=== PATIENT | female | born 1970 | race Asian ===

== ENCOUNTER 2016-12-04 22:33 | Emergency (ER) | payer SELFPAY ==
[2016-12-04 22:36] VITALS: BP 138/104
[2016-12-04] MEDS ORDERED: IPRATRPIUM/ALBUTEROL 0.5/2.5MG 3 ML NEBU. NEB ONE (23:30)
[2016-12-04] MEDS ORDERED: AZIT250T6 PO (23:48)
[2016-12-04] MEDS ORDERED: PROAIR HFA8.5 GM INH (23:48)
[2016-12-04] MEDS ORDERED: HYDR115S2 PO (23:48)
--- NOTE | 2016-12-04 23:48 | PHYS DOC ---
Past Medical History Past Medical History: Hypertension Past Surgical History: No Surgical History Alcohol Use: Occasionally Drug Use: None Adult General Chief Complaint Chief Complaint: COUGH HPI HPI Patient is a 46 year old female presents emergency room today with a complaint of one-week of cough, nasal congestion, headache, body aches, subjective fevers and chills. Patient denies any known ill contacts. She denies hospitalization, foreign travel or antibiotic use in the past 90 days. Patient reports she is a nonsmoker. Patient denies any history of heart or lung disease. Review of Systems Review of Systems Constitutional: Denies fever or chills [] Eyes: Denies change in visual acuity, redness, or eye pain [] HENT: Denies nasal congestion or sore throat [] Respiratory: Denies cough or shortness of breath [] Cardiovascular: No additional information not addressed in HPI [] GI: Denies abdominal pain, nausea, vomiting, bloody stools or diarrhea [] : Denies dysuria or hematuria [] Musculoskeletal: Denies back pain or joint pain [] Integument: Denies rash or skin lesions [] Neurologic: Denies headache, focal weakness or sensory changes [] Endocrine: Denies polyuria or polydipsia [] Current Medications Current Medications Current Medications Medications (Trade) Dose Ordered Sig/Suzette Start Time Stop Time Status Last Admin Dose Admin Albuterol/ Ipratropium (Duoneb) 3 ml 1X ONCE 12/04/16 23:30 12/04/16 23:31 DC 12/04/16 23:47 3 ML Allergies Allergies Allergies Coded Allergies Type Severity Reaction Last Updated Verified No Known Drug Allergies 09/06/16 No Physical Exam Physical Exam Constitutional: Well developed, well nourished, no acute distress, non-toxic appearance. Patient appears ill. She demonstrates a harsh, bronchitic cough. HENT: Normocephalic, atraumatic, bilateral external ears normal, oropharynx moist, no oral exudates, nose normal. [] Eyes: PERRLA, EOMI, conjunctiva normal, no discharge. [] Neck: Normal range of motion, no tenderness, supple, no stridor. [] Cardiovascular:Heart rate regular rhythm, no murmur [] Lungs & Thorax: There is no respiratory distress respiratory fatigue. There is no sensory muscle use or posturing. Audible rales heard in the base of the right lung field. There is no wheezing or rhonchi. Abdomen: Bowel sounds normal, soft, no tenderness, no masses, no pulsatile masses. [] Skin: Warm, dry, no erythema, no rash. [] Back: No tenderness, no CVA tenderness. [] Extremities: No tenderness, no cyanosis, no clubbing, ROM intact, no edema. [] Neurologic: Alert and oriented X 3, normal motor function, normal sensory function, no focal deficits noted. [] Psychologic: Affect normal, judgement normal, mood normal. [] Current Patient Data Vital Signs Vital Signs Date Time Temp Pulse Resp B/P Pulse Ox O2 Delivery O2 Flow Rate FiO2 12/04/16 23:48 98 Room Air 12/04/16 22:36 98.3 110 22 98.3 EKG EKG [] Radiology/Procedures Radiology/Procedures PA and lateral chest x-ray was performed with adequate technique. Patient has an infiltrate in her right lower lobe. Course & Med Decision Making Course & Med Decision Making Pertinent Labs and Imaging studies reviewed. (See chart for details) [] Dragon Disclaimer Dragon Disclaimer This electronic medical record was generated, in whole or in part, using a voice recognition dictation system. Departure Departure Impression: Primary Impression: Pneumonia Disposition: 01 HOME, SELF-CARE Condition: GOOD Referrals: ANETTE GROVES (PCP) Patient Instructions: Pneumonia, Adult, [id number] Additional Instructions: 1. You have pneumonia in the right lower lobe. 2. Take the medication as prescribed. 3. Review the discharge instructions for self-care and reasons to return to the emergency department. 4. Contact your primary care doctor's office Tuesday to schedule follow-up appointment for reevaluation by Tuesday or . Scripts Hydrocodone/Chlorphen Polis (Tussionex Pennkinetic Susp)480 Ml Nori.er.[id number] Ml PO BID cough suppression #100 ML Prov:DEIDRA AREVALO 12/04/16 Albuterol Sulfate (Proair Hfa Inhaler)8.5 Gm Hfa.aer.ad1 Puff INH PRN Q6HRS PRN SHORTNESS OF BREATH #1 INHALER Ref 0 Prov:DEIDRA AREVALO 12/04/16 Azithromycin (Azithromycin Tablet)250 Mg Tablet1 Pkg PO UD pneumonia #6 TAB Prov:DEIDRA AREVALO 12/04/16 DEIDRA AREVALO Dec 04, 2016 23:48
--- NOTE | 2016-12-05 08:10 | RAD ---
Indication: Fever and cough Technique: Two-view chest radiograph was obtained. No comparison is available. Findings: The lungs are clear. The cardiopulmonary silhouette is within normal limits. There is no pleural effusion. There are minimal degenerative changes in the spine. Impression: No acute thoracic findings.
== END 2016-12-05 00:20 | disposition home or self-care (01) ==
LOC: ER 22:33
DX: J18.9 Pneumonia, unspecified organism (principal); I10 Essential (primary) hypertension
CPT/HCPCS: 71020; 94250; 94640; 99284; J7620

== ENCOUNTER 2017-07-09 00:42 | Inpatient (IN) | payer SELFPAY ==
[~2017-07-09] VITALS: Ht 165.1 cm; Wt 94.8 kg
[~2017-07-09 00:42] MED LIST: AZIT250T6 PO; HYDR115S2 PO; PROAIR HFA8.5 GM INH
[2017-07-09 01:08] LABS: BASO # 0.1 x10^3/uL (0.0-0.2); BASO % 1 % (0-3); EOS % 4 % (0-3); HEMATOCRIT 40.6 % (36.0-47.0); HEMOGLOBIN 13.8 g/dL (12.0-15.5); LYMPH # 4.8 x10^3/uL (1.0-4.8); LYMPH % 45 % (24-48); MEAN CORPUSCULAR HEMOGLOBIN 33 pg (25-35); MEAN CORPUSCULAR HGB CONC 34 g/dL (31-37); MEAN CORPUSCULAR VOLUME 96 fL (79-100); MONO % 7 % (0-9); NEUT % 44 % (31-73); PLATELET COUNT 350 x10^3/uL (140-400); RED BLOOD COUNT 4.25 x10^6/uL (3.50-5.40); RED CELL DISTRIBUTION WIDTH 12.7 % (11.5-14.5); WHITE BLOOD COUNT 10.8 x10^3/uL (4.0-11.0)
--- NOTE | 2017-07-09 01:12 | PHYS DOC ---
Past Medical History Past Medical History: Hypertension Past Surgical History: No Surgical History Alcohol Use: Occasionally Drug Use: None Adult General Chief Complaint Chief Complaint: CHEST PAIN HPI HPI Patient is a 47 year old F who presents with chest pain. Patient states her chest pain has been present for the past 24 hours and start a central and radiates to her right shoulder. Patient states nothing increases or decreases the pain. Patient currently takes no medications however has a history of hypertension and smoking. Patient denies any shortness of breath. Patient denies any nausea/vomiting/diarrhea. Patient denies any fevers. Patient has no other complaints. 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 Review of Systems Review of Systems GEN: Denies fevers, chills, sweats HEENT: Denies blurred vision, sore throat CV: Chest pain RESP: Denies shortness of air, cough GI: Denies n/v/d NEURO: Denies confusion, dizziness MSK: Denies weakness, joint pain/swelling Current Medications Current Medications Current Medications Medications (Trade) Dose Ordered Sig/Suzette Start Time Stop Time Status Last Admin Dose Admin Aspirin (Children'S Aspirin) 324 mg 1X ONCE 07/09/17 01:15 07/09/17 01:16 DC 07/09/17 01:24 324 MG Info (Do NOT chart on this entry -- for MONITORING) 1 each PRN DAILY PRN 07/09/17 01:45 07/11/17 01:44 Iohexol (Omnipaque 300 Mg/ml) 75 ml 1X ONCE 07/09/17 01:45 07/09/17 01:46 DC 07/09/17 01:59 75 ML Nitroglycerin (Nitrostat) 0.4 mg PRN Q5MIN PRN 07/09/17 01:15 07/09/17 01:35 0.4 MG Allergies Allergies Allergies Coded Allergies Type Severity Reaction Last Updated Verified No Known Drug Allergies 09/06/16 No Physical Exam Physical Exam GEN.: No apparent distress. Alert and oriented. HEENT: Head is normocephalic, atraumatic NECK: Supple. LUNGS: CTAB. HEART: RRR, S1, S2 present. Peripheral pulses intact ABDOMEN: Soft, nontender. Positive bowel sounds. EXTREMITIES: Without any cyanosis. NEUROLOGIC: Normal speech, normal tone PSYCHIATRIC: Normal affect, normal mood. SKIN: No ulcerations Current Patient Data Vital Signs Vital Signs Date Time Temp Pulse Resp B/P (MAP) Pulse Ox O2 Delivery O2 Flow Rate FiO2 07/09/17 01:35 73 186/91 07/09/17 01:08 98.6 18 100 Room Air 98.6 Lab Values Laboratory Tests Test 07/09/17 01:00 White Blood Count 10.8 x10^3/uL (4.0-11.0) Red Blood Count 4.25 x10^6/uL (3.50-5.40) Hemoglobin 13.8 g/dL (12.0-15.5) Hematocrit 40.6 % (36.0-47.0) Mean Corpuscular Volume 96 fL (79-100) Mean Corpuscular Hemoglobin 33 pg (25-35) Mean Corpuscular Hemoglobin Concent 34 g/dL (31-37) Red Cell Distribution Width 12.7 % (11.5-14.5) Platelet Count 350 x10^3/uL (140-400) Neutrophils (%) (Auto) 44 % (31-73) Lymphocytes (%) (Auto) 45 % (24-48) Monocytes (%) (Auto) 7 % (0-9) Eosinophils (%) (Auto) 4 % (0-3) H Basophils (%) (Auto) 1 % (0-3) Neutrophils # (Auto) 4.7 x10^3uL (1.8-7.7) Lymphocytes # (Auto) 4.8 x10^3/uL (1.0-4.8) Monocytes # (Auto) 0.7 x10^3/uL (0.0-1.1) Eosinophils # (Auto) 0.5 x10^3/uL (0.0-0.7) Basophils # (Auto) 0.1 x10^3/uL (0.0-0.2) Sodium Level 142 mmol/L (136-145) Potassium Level 3.7 mmol/L (3.5-5.1) Chloride Level 103 mmol/L (98-107) Carbon Dioxide Level 30 mmol/L (21-32) Anion Gap 9 (6-14) Blood Urea Nitrogen 22 mg/dL (7-20) H Creatinine 0.8 mg/dL (0.6-1.0) Estimated GFR (Cockcroft-Gault) 77.2 BUN/Creatinine Ratio 28 (6-20) H Glucose Level 127 mg/dL (70-99) H Calcium Level 9.2 mg/dL (8.5-10.1) Total Bilirubin 0.1 mg/dL (0.2-1.0) L Aspartate Amino Transferase (AST) 18 U/L (15-37) Alanine Aminotransferase (ALT) 31 U/L (14-59) Alkaline Phosphatase 75 U/L (46-116) Troponin I Quantitative < 0.017 ng/mL (0.000-0.055) Total Protein 7.5 g/dL (6.4-8.2) Albumin 3.7 g/dL (3.4-5.0) Albumin/Globulin Ratio 1.0 (1.0-1.7) Laboratory Tests 07/09/17 01:00 Laboratory Tests 07/09/17 01:00 EKG EKG 0052: EKG shows normal sinus rhythm rate of 75 no STEMI[] Radiology/Procedures Radiology/Procedures Chest x-ray NAD CTA of the chest shows no dissection[] Course & Med Decision Making Course & Med Decision Making Pertinent Labs and Imaging studies reviewed. (See chart for details) ED course: Patient was seen and examined emergency room cardiac workup was ordered 0236: Patient was reevaluated and updated on lab work and x-ray findings. Patient's blood pressure still in the 180s systolic patient still having slight chest pain. Discussed CC/HP/PMH with Dr. Hinojosa and recommends admit [] MDM: After reviewing the chart, CC/HPI/PMH, physical exam, [lab results], [ radiological results], I do not believe the patient's having a STEMI, PE, thoracic aortic dissection. Given the patient's persistent symptoms of chest pain and hypertension will admit for further evaluation and management. [] Dragon Disclaimer Dragon Disclaimer This electronic medical record was generated, in whole or in part, using a voice recognition dictation system. Departure Departure Impression: Primary Impression: Chest pain Additional Impression: Hypertension Disposition: 09 ADMITTED INPATIENT Admitting Physician: Sandrita Hinojosa Condition: STABLE Referrals: ANETTE GROVES (PCP) Problem Qualifiers MOHSEN SENA DO Jul 09, 2017 01:12
[2017-07-09] MEDS ORDERED: ASPIRIN CHEWABLE 81 MG TABLET. PO ONE (01:15)
[2017-07-09] MEDS: NITROGLYCERIN SUBLINGUAL 0.4 MG BOTTLE OF 25. SL PRN ×2 (01:25→01:35)
[2017-07-09 01:27] LABS: CALCIUM 9.2 mg/dL (8.5-10.1); CREATININE 0.8 mg/dL (0.6-1.0); GFR 77.2; POTASSIUM 3.7 mmol/L (3.5-5.1)
[2017-07-09 01:33] LABS: ALBUMIN 3.7 g/dL (3.4-5.0); TOTAL BILIRUBIN 0.1 mg/dL (0.2-1.0); TOTAL PROTEIN 7.5 g/dL (6.4-8.2)
[2017-07-09] MEDS ORDERED: CONTRAST GIVEN MC PRN (01:45)
[2017-07-09] MEDS ORDERED: IOHEXOL 300 MG/ML 75 ML VIAL IV ONE (01:45)
--- NOTE | 2017-07-09 02:30 | RAD ---
CT angiography chest with contrast TECHNIQUE: Helical CT imaging of the chest with multiplanar 3-D MIP reconstructions of the pulmonary arteries to assess for emboli with 75 mL Omnipaque 300 intravenous contrast. HISTORY: Chest pain. 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 Right and left coronary artery calcified plaque. Esophagus is unremarkable. No adenopathy in the chest. Mild pericardial fluid. Mild cardiomegaly likely present. No pulmonary artery embolus. No pneumothorax. No pleural effusions. Mild dependent groundglass densities likely atelectasis. 4 mm right upper lobe pulmonary nodule image 56. Lower thoracic spine disc osteophytes. IMPRESSION: 1. No pulmonary artery embolus. 2. Mild cardiomegaly. Mild volume of pericardial fluid. 3. Right upper lobe 4 mm pulmonary nodule. In a low-risk patient no follow-up is necessary, in a high risk patient optional CT follow-up in 12 months would be advised per Fleischner guidelines. 4. 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 Exposure: One or more of the following individualized dose reduction techniques were utilized for this examination: 1. Automated exposure control 2. Adjustment of the mA and/or kV according to patient size 3. Use of iterative reconstruction technique Electronically signed by: Ernst Lopez MD (07/09/2017 2:27 AM) [id number]
[2017-07-09] MEDS ORDERED: NITROGLYCERIN SUBLINGUAL 0.4 MG BOTTLE OF 25. SL PRN (02:45)
[2017-07-09] MEDS ORDERED: MORPHINE SULFATE 4 MG/ML DISP.SYRIN. IV PRN (02:45)
[2017-07-09] MEDS ORDERED: ONDANSETRON PF 4 MG/2 ML VIAL. IV PRN (02:45)
[2017-07-09] MEDS ORDERED: ACETAMINOPHEN 325 MG TABLET. PO PRN (02:45)
[2017-07-09] MEDS ORDERED: LIDO:MAALOX:DONNATAL 1:1:1 15 ML SINGLE DOSE SWSW ONE (03:15)
[2017-07-09 04:30] VITALS: BP 153/69
[2017-07-09 07:00] VITALS: BP 149/77
[2017-07-09] MEDS ORDERED: amLODIPine BESYLATE 5 MG TABLET PO ONE (08:15)
--- NOTE | 2017-07-09 08:17 | PDOC2 ---
KENNETH QUINONES ENVIRONMENTAL AIR SPECIALIST 07/09/17 0817: CARDIAC CONSULT DATE OF CONSULT Date of Consult DATE: 07/09/17 TIME: 08:05 REASON FOR CONSULT Reason for Consult: CP, HTN REFERRING PHYSICIAN Referring Physician: Prudencio SOURCE Source: Chart review, Patient HISTORY OF PRESENT ILLNESS HISTORY OF PRESENT ILLNESS This is a pleasant 47 yo female admitted for complains of chest pain. Reports that this is mainly to left upper chest and radiates to her right shoulder and this is reproducible with palpation. Also notable for throat irritation and pointing to her manubrium indicating that it bustos and felt like food is getting stuck sometimes. Denies any SOA or radidating discomfort to arms and jaw. No exertional CP or SOA. Denies any nausea or vomiting. Denies any palpitations or dizziness. Reports that she has HTN but has stopped taking her medications about 3-4 months ago since she said she could not afford it. Deneis any routine medications nor NSAID use. Denies any CAD, VTE, dfalls or any recent injury or intractable coughing. Denies any GERD or PUD hx. PAST MEDICAL HISTORY Cardiovascular: HTN Pulmonary: Pneumonia CENTRAL NERVOUS SYSTEM: Other (No pertinent history) GI: No pertinent hx Heme/Onc: No pertinent hx Hepatobiliary: No pertinent hx Psych: No pertinent hx Musculoskeletal: Other (carpal tunnel syndrome) Rheumatologic: No pertinent hx Infectious disease: No pertinent hx ENT: No pertinent hx Renal/: No pertinent hx Endocrine: No pertinent hx Dermatology: No pertinent hx PAST SURGICAL HISTORY Past Surgical History: No pertinent history FAMILY HISTORY Family History: Coronary Artery Disease (mother and father) SOCIAL HISTORY Smoke: 1 pack per day ALCOHOL: none Drugs: None Lives: with Family CURRENT MEDICATIONS CURRENT MEDICATIONS Current Medications Medications (Trade) Dose Ordered Sig/Suzette Route PRN Reason Start Time Stop Time Status Last Admin Dose Admin Nitroglycerin (Nitrostat) 0.4 mg PRN Q5MIN PRN SL CHEST PAIN 07/09/17 01:15 07/09/17 02:49 DC 07/09/17 01:35 Aspirin (Children'S Aspirin) 324 mg 1X ONCE PO 07/09/17 01:15 07/09/17 01:16 DC 07/09/17 01:24 Iohexol (Omnipaque 300 Mg/ml) 75 ml 1X ONCE IV 07/09/17 01:45 07/09/17 01:46 DC 07/09/17 01:59 Multi-Ingredient Mouthwash/Gargle (Gi Cocktail Single Dose) 15 ml 1X ONCE SWSW 07/09/17 03:15 07/09/17 03:16 DC 07/09/17 03:17 ALLERGIES ALLERGIES: Coded Allergies: No Known Drug Allergies (Unverified , 09/06/16) ROS Review of System 14 point ROS evaluated with pertinent positives noted per hPI PHYSICAL EXAM General: Alert, Oriented X3, Cooperative, No acute distress HEENT: Atraumatic, Mucous membr. moist/pink Lungs: Clear to auscultation, Normal air movement Heart: Regular rate (SR), Normal S1, Normal S2, No murmurs Abdomen: Soft, No tenderness Extremities: No cyanosis, Other (trace LE edema) Skin: No breakdown, No significant lesion Neuro: Normal speech, Sensation intact Psych/Mental Status: Mental status NL, Mood NL VITALS VITALS Vital Signs Date Time Temp Pulse Resp B/P (MAP) Pulse Ox O2 Delivery O2 Flow Rate FiO2 07/09/17 07:00 97.7 71 18 149/77 (101) 95 Room Air 97.7 LABS Lab: Laboratory Tests Test 07/09/17 01:00 White Blood Count 10.8 x10^3/uL (4.0-11.0) Red Blood Count 4.25 x10^6/uL (3.50-5.40) Hemoglobin 13.8 g/dL (12.0-15.5) Hematocrit 40.6 % (36.0-47.0) Mean Corpuscular Volume 96 fL (79-100) Mean Corpuscular Hemoglobin 33 pg (25-35) Mean Corpuscular Hemoglobin Concent 34 g/dL (31-37) Red Cell Distribution Width 12.7 % (11.5-14.5) Platelet Count 350 x10^3/uL (140-400) Neutrophils (%) (Auto) 44 % (31-73) Lymphocytes (%) (Auto) 45 % (24-48) Monocytes (%) (Auto) 7 % (0-9) Eosinophils (%) (Auto) 4 % (0-3) Basophils (%) (Auto) 1 % (0-3) Neutrophils # (Auto) 4.7 x10^3uL (1.8-7.7) Lymphocytes # (Auto) 4.8 x10^3/uL (1.0-4.8) Monocytes # (Auto) 0.7 x10^3/uL (0.0-1.1) Eosinophils # (Auto) 0.5 x10^3/uL (0.0-0.7) Basophils # (Auto) 0.1 x10^3/uL (0.0-0.2) Sodium Level 142 mmol/L (136-145) Potassium Level 3.7 mmol/L (3.5-5.1) Chloride Level 103 mmol/L (98-107) Carbon Dioxide Level 30 mmol/L (21-32) Anion Gap 9 (6-14) Blood Urea Nitrogen 22 mg/dL (7-20) Creatinine 0.8 mg/dL (0.6-1.0) Estimated GFR (Cockcroft-Gault) 77.2 BUN/Creatinine Ratio 28 (6-20) Glucose Level 127 mg/dL (70-99) Calcium Level 9.2 mg/dL (8.5-10.1) Total Bilirubin 0.1 mg/dL (0.2-1.0) Aspartate Amino Transf (AST/SGOT) 18 U/L (15-37) Alanine Aminotransferase (ALT/SGPT) 31 U/L (14-59) Alkaline Phosphatase 75 U/L (46-116) Troponin I Quantitative < 0.017 ng/mL (0.000-0.055) Total Protein 7.5 g/dL (6.4-8.2) Albumin 3.7 g/dL (3.4-5.0) Albumin/Globulin Ratio 1.0 (1.0-1.7) ASSESSMENT/PLAN ASSESSMENT/PLAN 1. Atypical CP: noncardiac. Likely GERD exacerbation and possible right shoulder impingement. 2. Possible esophageal stricture: complains of food getting stuck. 3. HTN: uncontrolled due to noncompliance, stopped med 3-4 months ago 4. Tobaccoism Recommendations 1. Start on PPI. Will need GI to see. Defer to PCP 2. Lipid panel 3. Smoking cessation 4. Discussed compliance. No further cardiac testing. 5. Will provide x1 norvasc (will not be able to afford this) and will start on daily HCTZ. Ideally would need ACEi or ARB in addition but will need education on contraception. Defer further to PCP Problems: IVANNA NAM MD 07/09/17 1610: CARDIAC CONSULT ALLERGIES ALLERGIES: Coded Allergies: No Known Drug Allergies (Unverified , 09/06/16) ASSESSMENT/PLAN ASSESSMENT/PLAN Patient seen and examined. Agree with [employer]IS[employer] ENGINEER's assessment and plan. Chest pain with atypical features and most probably GI etiology. Myocardial infarction ruled out. We will consider outpatient ischemic evaluation. The importance of compliance with antihypertensive medications emphasized. Thank you for your consultation. Problems: KENNETH QUINONES APRN Jul 09, 2017 08:17 IVANNA NAM MD Jul 09, 2017 16:10
--- NOTE | 2017-07-09 08:46 | RAD ---
AP portable chest radiograph 07/09/2017 Clinical History: Chest pain. An AP portable erect digital radiograph of the chest was obtained. Comparison study is dated 12/04/2016. The cardiac silhouette is mildly enlarged. The thoracic aorta is mildly tortuous. No acute pulmonary infiltrate is seen. No pleural effusion or pneumothorax is identified. The osseous structures are unchanged. Impression: No acute abnormality is seen.
[2017-07-09] MEDS ORDERED: hydroCHLOROthiazide 25 MG TABLET PO SCH (09:00)
[2017-07-09] MEDS ORDERED: FLU VACC QS2017-18 (36MOS+)/PF 0.5 ML SYRINGE. VAX IM ONE (09:00)
[2017-07-09] MEDS ORDERED: INFLUENZA VAX SCREEN BY RX. MC ONE (09:00)
[2017-07-09] MEDS ORDERED: PANTOPRAZOLE 40 MG TABLET.DR. PO SCH (09:00)
--- NOTE | 2017-07-09 09:30 | PDOC1 ---
History and Physical Date of Admission Date of Admission DATE: 07/09/17 TIME: 09:29 Identification/Chief Complaint Chief Complaint shoulder pain Problems: Source Source: Chart review, Patient History of Present Illness History of Present Illness Ms. Osman is a pleasant 47 yo female admitted for chest pain, right shoulder pain. Right shoulder pain on movement, and some chest pain when swallowing food. She works as a cook, and doesn't eat most of the day, then has to eat really fast and feels food gets stuck Pain to her right shoulder and this is reproducible with palpation. also some throat irritation, Denies any SOA or radidating discomfort to arms and jaw. No exertional CP or SOA. 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, 6 days a week, long hours Past Medical History Cardiovascular: HTN Pulmonary: Pneumonia CENTRAL NERVOUS SYSTEM: Other (No pertinent history) GI: No pertinent hx Heme/Onc: No pertinent hx Hepatobiliary: No pertinent hx Psych: No pertinent hx Musculoskeletal: Other (carpal tunnel syndrome) Rheumatologic: No pertinent hx Infectious disease: No pertinent hx ENT: No pertinent hx Renal/: No pertinent hx Endocrine: No pertinent hx Dermatology: No pertinent hx Past Surgical History Past Surgical History: No pertinent history Family History Family History: Coronary Artery Disease (mother and father) Social History Smoke: <1 pack per day ALCOHOL: none Drugs: None Current Problem List Problem List Problems Medical Problems: (1) Chest pain Status: Acute (2) Hypertension Status: Acute Problems: Current Medications Current Medications Current Medications Nitroglycerin (Nitrostat) 0.4 mg PRN Q5MIN PRN SL CHEST PAIN Last administered on 07/09/17 01:35; Start 07/09/17 at 01:15; Stop 07/09/17 at 02:49; Status DC Aspirin (Children'S Aspirin) 324 mg 1X ONCE PO Last administered on 01:24; Start 07/09/17 at 01:15; Stop 07/09/17 at 01:16; Status DC Iohexol (Omnipaque 300 Mg/ml) 75 ml 1X ONCE IV Last administered on 01:59; Start 07/09/17 at 01:45; Stop 07/09/17 at 01:46; Status DC Info (Do NOT chart on this entry -- for MONITORING) 1 each PRN DAILY PRN MC SEE COMMENTS; Start 07/09/17 at 01:45; Stop 07/11/17 at 01:44 Ondansetron HCl (Zofran) 4 mg PRN Q8HRS PRN IV NAUSEA/VOMITING; Start at 02:45; Stop 07/10/17 at 02:44 Morphine Sulfate 4 mg PRN Q2HR PRN IV PAIN; Start 07/09/17 at 02:45; Stop at 02:44 Acetaminophen (Tylenol) 650 mg PRN Q4HRS PRN PO FEVER Last administered on 08:48; Start 07/09/17 at 02:45; Stop 07/10/17 at 02:44 Nitroglycerin (Nitrostat) 0.4 mg PRN Q5MIN PRN SL CHEST PAIN; Start 07/09/17 at 02:45; Stop 07/10/17 at 02:44 Multi-Ingredient Mouthwash/Gargle (Gi Cocktail Single Dose) 15 ml 1X ONCE SWSW Last administered on 07/09/17 03:17; Start 07/09/17 at 03:15; Stop at 03:16; Status DC Info (Do NOT chart on this placeholder) 1 each 1X ONCE MC ; Start 07/09/17 at 09:00; Stop 07/09/17 at 09:01; Status UNV Influenza Virus Vaccine Quadrival (Fluarix Quad [id number] Syringe) 0.5 ml ONCE ONCE VAX IM Last administered on 07/09/17 08:48; Start 07/09/17 at 09:00; Stop 07/09/17 at 09:01; Status DC Hydrochlorothiazide (Hydrodiuril) 25 mg DAILY PO Last administered on 08:44; Start 07/09/17 at 09:00 Pantoprazole Sodium (Protonix) 40 mg DAILYAC PO Last administered on 08:43; Start 07/09/17 at 09:00 Amlodipine Besylate (Norvasc) 5 mg 1X ONCE PO Last administered on 07/09/17t 08:43; Start 07/09/17 at 08:15; Stop 07/09/17 at 08:24; Status DC Active Scripts Active Tussionex Pennkinetic Susp (Hydrocodone/Chlorphen Polis) 480 Ml Nori.er.12h 5 Ml PO BID Proair Hfa Inhaler (Albuterol Sulfate) 8.5 Gm Hfa.aer.ad 1 Puff INH PRN Q6HRS PRN Azithromycin Tablet (Azithromycin) 250 Mg Tablet 1 Pkg PO UD Allergies Allergies: Coded Allergies: No Known Drug Allergies (Unverified , 09/06/16) ROS General: No: Chills, Night Sweats, Fatigue, Malaise, Appetite, Other PSYCHOLOGICAL ROS: No: Anxiety, Behavioral Disorder, Concentration difficultie , Decreased libido, Depression, Disorientation, Hallucinations, Hostility, Irritablity, Memory difficulties, Mood Swings, Obsessive thoughts, Physical abuse, Sexual abuse, Sleep disturbances, Suicidal ideation, Other Eyes: No Blurry vision, No Decreased vision, No Double vision, No Dry eyes, No Excessive tearing, No Eye Pain, No Itchy Eyes, No Loss of vision, No Photophobia , No Scotomata, No Uses contacts, No Uses glasses, No Other HEENT: No: Heacaches, Visual Changes, Hearing change, Nasal congestion, Nasal discharge, Oral lesions, Sinus pain, Sore Throat, Epistaxis, Sneezing, Snoring, Tinnitus, Vertigo, Vocal changes, Other Respiratory: No: Cough, Hemoptysis, Orthopnea, Pleuritic Pain, Shortness of breath, SOB with excertion, Sputum Changes, Stridor, Tachypnea, Wheezing, Other Cardiovascular: yes Chest Pain, No Palpitations, No Orthopnea, No Paroxysmal Noc. Dyspnea, No Edema, No Lt Headedness, No Other Gastrointestinal: No Nausea, No Vomiting, No Abdominal Pain, No Diarrhea, No Constipation, No Melena, No Hematochezia, No Other Genitourinary: No Dysuria, No Frequency, No Incontinence, No Hematuria, No Retention, No Discharge, No Urgency, No Pain, No Flank Pain, No Other, No , No , No , No , No , No , No Musculoskeletal: Yes Joint Pain, Yes Joint Stiffness, No Gait Disturbance, No Joint Swelling, No Muscle Pain, No Muscular Weakness , No Pain In:, No Swelling In:, No Other Neurological: No Behavorial Changes, No Bowel/Bladder ControlChng, No Confusion , No Dizziness, No Gait Disturbance, No Headaches, No Impaired Coord/balance, No Memory Loss, No Numbness/Tingling, No Seizures, No Speech Problems, No Tremors, No Visual Changes, No Weakness, No Other Skin: Yes Dry Skin, No Eczema, No Hair Changes, No Lumps, No Mole Changes, No Mottling, No Nail Changes, No Pruritus, No Rash, No Skin Lesion Changes, No Other, No Acne Physical Exam General: Alert, Oriented X3, Cooperative, No acute distress HEENT: Atraumatic, PERRLA, EOMI, Mucous membr. moist/pink Lungs: Normal air movement Heart: no gallops, no murmurs Abdomen: Normal bowel sounds, Soft (obese) Extremities: No cyanosis, No edema Skin: No breakdown Neuro: Normal speech, Normal tone, Sensation intact Psych/Mental Status: Mood NL Vitals Vitals Vital Signs Date Time Temp Pulse Resp B/P (MAP) Pulse Ox O2 Delivery O2 Flow Rate FiO2 07/09/17 08:43 71 149/77 07/09/17 07:00 97.7 18 95 Room Air 97.7 Labs Labs Laboratory Tests Test 07/09/17 01:00 White Blood Count 10.8 x10^3/uL (4.0-11.0) Red Blood Count 4.25 x10^6/uL (3.50-5.40) Hemoglobin 13.8 g/dL (12.0-15.5) Hematocrit 40.6 % (36.0-47.0) Mean Corpuscular Volume 96 fL (79-100) Mean Corpuscular Hemoglobin 33 pg (25-35) Mean Corpuscular Hemoglobin Concent 34 g/dL (31-37) Red Cell Distribution Width 12.7 % (11.5-14.5) Platelet Count 350 x10^3/uL (140-400) Neutrophils (%) (Auto) 44 % (31-73) Lymphocytes (%) (Auto) 45 % (24-48) Monocytes (%) (Auto) 7 % (0-9) Eosinophils (%) (Auto) 4 % (0-3) Basophils (%) (Auto) 1 % (0-3) Neutrophils # (Auto) 4.7 x10^3uL (1.8-7.7) Lymphocytes # (Auto) 4.8 x10^3/uL (1.0-4.8) Monocytes # (Auto) 0.7 x10^3/uL (0.0-1.1) Eosinophils # (Auto) 0.5 x10^3/uL (0.0-0.7) Basophils # (Auto) 0.1 x10^3/uL (0.0-0.2) Sodium Level 142 mmol/L (136-145) Potassium Level 3.7 mmol/L (3.5-5.1) Chloride Level 103 mmol/L (98-107) Carbon Dioxide Level 30 mmol/L (21-32) Anion Gap 9 (6-14) Blood Urea Nitrogen 22 mg/dL (7-20) Creatinine 0.8 mg/dL (0.6-1.0) Estimated GFR (Cockcroft-Gault) 77.2 BUN/Creatinine Ratio 28 (6-20) Glucose Level 127 mg/dL (70-99) Calcium Level 9.2 mg/dL (8.5-10.1) Total Bilirubin 0.1 mg/dL (0.2-1.0) Aspartate Amino Transf (AST/SGOT) 18 U/L (15-37) Alanine Aminotransferase (ALT/SGPT) 31 U/L (14-59) Alkaline Phosphatase 75 U/L (46-116) Troponin I Quantitative < 0.017 ng/mL (0.000-0.055) Total Protein 7.5 g/dL (6.4-8.2) Albumin 3.7 g/dL (3.4-5.0) Albumin/Globulin Ratio 1.0 (1.0-1.7) Laboratory Tests Test 07/09/17 01:00 White Blood Count 10.8 x10^3/uL (4.0-11.0) Red Blood Count 4.25 x10^6/uL (3.50-5.40) Hemoglobin 13.8 g/dL (12.0-15.5) Hematocrit 40.6 % (36.0-47.0) Mean Corpuscular Volume 96 fL (79-100) Mean Corpuscular Hemoglobin 33 pg (25-35) Mean Corpuscular Hemoglobin Concent 34 g/dL (31-37) Red Cell Distribution Width 12.7 % (11.5-14.5) Platelet Count 350 x10^3/uL (140-400) Neutrophils (%) (Auto) 44 % (31-73) Lymphocytes (%) (Auto) 45 % (24-48) Monocytes (%) (Auto) 7 % (0-9) Eosinophils (%) (Auto) 4 % (0-3) Basophils (%) (Auto) 1 % (0-3) Neutrophils # (Auto) 4.7 x10^3uL (1.8-7.7) Lymphocytes # (Auto) 4.8 x10^3/uL (1.0-4.8) Monocytes # (Auto) 0.7 x10^3/uL (0.0-1.1) Eosinophils # (Auto) 0.5 x10^3/uL (0.0-0.7) Basophils # (Auto) 0.1 x10^3/uL (0.0-0.2) Sodium Level 142 mmol/L (136-145) Potassium Level 3.7 mmol/L (3.5-5.1) Chloride Level 103 mmol/L (98-107) Carbon Dioxide Level 30 mmol/L (21-32) Anion Gap 9 (6-14) Blood Urea Nitrogen 22 mg/dL (7-20) Creatinine 0.8 mg/dL (0.6-1.0) Estimated GFR (Cockcroft-Gault) 77.2 BUN/Creatinine Ratio 28 (6-20) Glucose Level 127 mg/dL (70-99) Calcium Level 9.2 mg/dL (8.5-10.1) Total Bilirubin 0.1 mg/dL (0.2-1.0) Aspartate Amino Transf (AST/SGOT) 18 U/L (15-37) Alanine Aminotransferase (ALT/SGPT) 31 U/L (14-59) Alkaline Phosphatase 75 U/L (46-116) Troponin I Quantitative < 0.017 ng/mL (0.000-0.055) Total Protein 7.5 g/dL (6.4-8.2) Albumin 3.7 g/dL (3.4-5.0) Albumin/Globulin Ratio 1.0 (1.0-1.7) VTE Prophylaxis Ordered VTE Prophylaxis Devices: No VTE Pharmacological Prophylaxi: No Assessment/Plan Assessment/Plan acute shoulder pain, subluxed and impinged shoulder with rotator cuff pain, consult PT and physiatry GERD, abd pain, some swallowing problems at tmes, htn, accelerated on admit tobaccoism, cessation discussed, would help above problems obesity, BMI 35 JALEESA AARON MD Jul 09, 2017 09:30
[2017-07-09] MEDS ORDERED: AMLO2.5T2 PO (09:44)
[2017-07-09] MEDS ORDERED: HYDR25TA9 PO (09:44)
[2017-07-09] MEDS ORDERED: FAMO40TA57 PO (09:44)
[2017-07-09] MEDS ORDERED: NON FORMULARY ITEM (Albuterol Sulfate (Proair Hfa Inhaler) 1 PUFF) INH PRN (09:45)
[2017-07-09] MEDS ORDERED: ALBUTEROL SULFATE 2.5 MG/3 ML NEBU. NEB PRN (09:45)
[2017-07-09] MEDS ORDERED: NICOTINE 14MG PATCH. TD PRN (09:45)
[2017-07-09 10:33] VITALS: BP 151/80
--- NOTE | 2017-07-09 11:56 | CONS ---
DATE OF CONSULTATION: 07/09/2017 ATTENDING PHYSICIAN: Dr. Hinojosa. The patient was seen at the request of Dr. Hinojosa for right shoulder pain. HISTORY OF PRESENT ILLNESS: This is a 47-year-old right-handed female. The patient complains of right shoulder pain, going on for about few months without any specific injury, and her friend gives massage to the shoulder and that helped ease the pain for a while. 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 The patient also admits right knee giving out sensation once in a while going on for a while. The patient with known hypertension, previous pneumonia, not known allergic to any medication. FAMILY HISTORY: Coronary artery disease with mother and father. She smokes less than 1 pack of cigarettes per day. The patient was also admitted for chest pain, but right now she denies any chest pain or shortness of breath. PHYSICAL EXAMINATION: Today revealed a middle-aged female. She is alert, oriented to time, place, person and circumstance and follows commands appropriately. She is in no acute distress. She had tenderness to palpation over anterior aspect of right shoulder and also over right posterior shoulder girdle muscles. The patient had crepitus on range of motion of both knee joints without any obvious knee joint effusion or ligamentous laxity noted. She had 5/5 grade muscle strength in her extremities, and deep tendon reflexes are 2+ and symmetrical, and she had equal perception of touch and pinprick sensation bilaterally. She is independent with her mobility and self-care skills. She had pain with range of motion of her cervical spine. ASSESSMENT: A middle-aged female with tendinitis of right shoulder, probably from repeated use of her right upper extremity and also degenerative joint disease of both knees, with associated giving out sensation in the right knee to rule out torn meniscus. RECOMMENDATIONS: I have instructed her in a home program of physical modalities and trigger point massage to her right posterior shoulder girdle muscles and Codman exercises to her right shoulder and isometric strengthening exercise to her lower extremity muscle groups. I thought of ordering MRI scan of her right knee to rule out any internal derangement, but apparently she does not have any health insurance at present time, to hold off getting an MRI scan at present time. The patient should benefit from use of nonsteroidal anti-inflammatory medication to help with her tendonitis in her right shoulder. I will be glad to see her for followup on an as needed basis on outpatient basis after discharge. Dr. Hinojosa, I appreciate asking me to participate in the care of this interesting patient. I will be glad to follow her with you as needed. VESTA MENDOZA MD DR: KRYSTLE/johanna JOB#: [id number] / [id number]
--- NOTE | 2017-07-09 12:23 | EKG ---
[facility] [address] [place] [address] Test Date: 2017-07-09 Test Time: 00:52:29 Pat Name: RU WOLFE Department: Room: Gender: F Gastroenterologist: JAMAL : 1970 Requested By: MOHSEN SENA Order Number: [id number] Reading MD: Measurements Intervals [place] Rate: 75 P: 27 MA: 182 QRS: -16 QRSD: 96 T: 24 QT: 384 QTc: 431 Interpretive Statements SINUS RHYTHM LEFTWARD AXIS OTHERWISE NORMAL ECG RI6.01 No previous ECG available for comparison
== END 2017-07-09 14:35 | disposition home or self-care (01) | DRG 556 ==
LOC: ER 00:42 → 6 SOUTH 02:33
PROVIDERS: ADMIT Internal Medicine; ATTEND Internal Medicine
DX: M70.811 Other soft tissue disorders related to use, overuse and pressure, right shoulder (principal); E66.9 Obesity, unspecified; F17.210 Nicotine dependence, cigarettes, uncomplicated; G56.00 Carpal tunnel syndrome, unspecified upper limb; I10 Essential (primary) hypertension; R07.89 Other chest pain; M17.0 Bilateral primary osteoarthritis of knee; K21.9 Gastro-esophageal reflux disease without esophagitis; Z82.49 Family history of ischemic heart disease and other diseases of the circulatory system; Z91.19 Patient's noncompliance with other medical treatment and regimen; Z87.01 Personal history of pneumonia (recurrent); Z68.35 Body mass index [BMI] 35.0-35.9, adult; Y93.89 Activity, other specified; Z71.6 Tobacco abuse counseling
CPT/HCPCS: 36415; 71010; 71275; 80053; 80061; 84484; 85025; 90686; 93005; Q9967; 99285-25

== ENCOUNTER 2018-05-04 15:02 | Emergency (ER) | payer MEDICAID, OTHER ==
[~2018-05-04] VITALS: Ht 165.1 cm; Wt 82.6 kg
[~2018-05-04 15:02] MED LIST changes: +AMLO2.5T2 PO; +FAMO40TA57 PO; +HYDR25TA9 PO
[2018-05-04] MEDS ORDERED: methylPREDNISolone SOD SUCC PF 125 MG/2 ML VIAL. IM ONE (15:30)
[2018-05-04] MEDS ORDERED: FAMOTIDINE 20 MG TABLET. PO ONE (15:30)
[2018-05-04] MEDS ORDERED: METH4TAB2 PO (15:37)
--- NOTE | 2018-05-04 15:37 | PHYS DOC ---
Past Medical History Past Medical History: Hypertension Past Surgical History: No Surgical History Alcohol Use: Occasionally Drug Use: None Adult General Chief Complaint Chief Complaint: ALLERGIC REACTION HPI HPI Patient is a 47 year old female presents to the ED complaining of facial swelling times one day ago. 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 States her face felt puffy and itchy. States she went home and it improved somewhat but woke up with itching. States she did not take any medications at home. No new soaps, lotions or detergents. Denies difficulty breathing, difficulty swallowing, nausea/vomiting , lip swelling, dizziness, syncope, chest pain, shortness of breath, fever or cough. Review of Systems Review of Systems Constitutional: Denies fever or chills [] Eyes: Denies change in visual acuity, redness, or eye pain [] HENT: Complains of facial swelling/itching. Denies nasal congestion or sore throat [] Respiratory: Denies cough or shortness of breath [] Cardiovascular: No additional information not addressed in HPI [] GI: Denies abdominal pain, nausea, vomiting, bloody stools or diarrhea [] : Denies dysuria or hematuria [] Musculoskeletal: Denies back pain or joint pain [] Integument: Denies rash or skin lesions [] Neurologic: Denies headache, focal weakness or sensory changes [] All other systems were reviewed and found to be within normal limits, except as documented in this note. Current Medications Current Medications Current Medications Medications (Trade) Dose Ordered Sig/Suzette Start Time Stop Time Status Last Admin Dose Admin Famotidine (Pepcid) 20 mg 1X ONCE 05/04/18 15:30 05/04/18 15:31 DC 05/04/18 15:41 20 MG Methylprednisolone Sodium Succinate (SOLU-Medrol 125MG VIAL) 125 mg 1X ONCE 05/04/18 15:30 05/04/18 15:31 DC 05/04/18 15:41 125 MG Allergies Allergies Allergies Coded Allergies Type Severity Reaction Last Updated Verified No Known Drug Allergies 09/06/16 No Physical Exam Physical Exam Constitutional: Well developed, well nourished, no acute distress, non-toxic appearance. [] HENT: Normocephalic, atraumatic, bilateral external ears normal, oropharynx moist, no oral exudates, nose normal. [] Eyes: PERRLA, EOMI, conjunctiva normal, no discharge. mild periorbital facial swelling.[] Neck: Normal range of motion, no tenderness, supple, no stridor. [] Cardiovascular:Heart rate regular rhythm, no murmur [] Lungs & Thorax: Bilateral breath sounds clear to auscultation [] Skin: Warm, dry, no erythema, no rash. [] Neurologic: Alert and oriented X 3, normal motor function, normal sensory function, no focal deficits noted. [] Psychologic: Affect normal, judgement normal, mood normal. [] Current Patient Data Vital Signs Vital Signs Date Time Temp Pulse Resp B/P (MAP) Pulse Ox O2 Delivery O2 Flow Rate FiO2 05/04/18 16:48 98.2 73 14 95 Room Air 98.2 EKG EKG [] Radiology/Procedures Radiology/Procedures [] Course & Med Decision Making Course & Med Decision Making Pertinent Labs and Imaging studies reviewed. (See chart for details) []Mild periorbital facial swelling on exam. Patient has not had any difficulty swallowing or breathing. Tolerating by mouth. Patient given IM steroids in the ED and Pepcid. Patient states she is feeling much better. Discussed use of Benadryl [id number] outpatient. Discussed abstaining from potential allergen. Discussed follow-up and reasons to return to the ED. Patient understands and agrees with plan. Dragon Disclaimer Dragon Disclaimer This electronic medical record was generated, in whole or in part, using a voice recognition dictation system. Departure Departure Impression: Primary Impression: Allergic reaction Disposition: 01 HOME, SELF-CARE Condition: IMPROVED Referrals: FLACO FERNANDEZ MD (PCP) Patient Instructions: Allergies, Generic Scripts Methylprednisolone (MEDROL) 4 Mg Tab.ds.pk 1 PKG PO UD, #1 PKG Prov: JULISSA COLON 05/04/18 JULISSA COLON May 04, 2018 15:37
[2018-05-04 16:48] VITALS: BP 153/87
== END 2018-05-04 16:50 | disposition home or self-care (01) ==
LOC: ER 15:02
DX: T78.40XA Allergy, unspecified, initial encounter (principal); I10 Essential (primary) hypertension
CPT/HCPCS: 96372; 99283; J2930

== ENCOUNTER → 2018-10-23 | Outpatient (CLI) | payer OTHER ==
[~2018-10-23] MED LIST changes: +ALBU2.5V8 INH; +DICL75TA PO; +HYDR-2145 PO; -HYDR25TA9 PO; +METH4TAB2 PO; -PROAIR HFA8.5 GM INH
--- NOTE | 2018-10-23 16:30 | RAD ---
DATE: 10/23/2018 EXAM: DIGITAL SCREEN BILAT W/CAD HISTORY: Routine screening COMPARISON: None. This is the first mammogram the patient has undergone. This is the baseline. This study was interpreted with the benefit of Computerized Aided Detection (CAD). Breast Density: SCATTERED The breast parenchyma shows scattered fibroglandular densities. Breast parenchyma level B. FINDINGS: Benign-appearing axillary lymph nodes are present. No masses or distortion. No suspicious calcifications. IMPRESSION: Benign findings. BI-RADS CATEGORY: 2 BENIGN FINDING(S) RECOMMENDED FOLLOW-UP: 12M 12 MONTH FOLLOW-UP PQRS compliance statement: Patient information was entered into a reminder system with a target due date in one year for the next mammogram. Mammography is a sensitive method for finding small breast cancers, but it does not detect them all and is not a substitute for careful clinical examination. A negative mammogram does not negate a clinically suspicious finding and should not result in delay in biopsying a clinically suspicious abnormality. "Our facility is accredited by the [employer] Mammography Program."
== END | disposition home or self-care (01) ==
LOC: MAMMO 08:15
PROVIDERS: ATTEND Family Medicine
DX: Z12.31 Encounter for screening mammogram for malignant neoplasm of breast (principal)
CPT/HCPCS: 77067

== ENCOUNTER 2018-12-03 22:02 | Emergency (ER) | payer OTHER ==
[~2018-12-03] VITALS: Ht 165.1 cm; Wt 82.6 kg
[~2018-12-03 22:02] MED LIST changes: -DICL75TA PO
--- NOTE | 2018-12-04 03:30 | PHYS DOC ---
Past Medical History Past Medical History: GERD, Hypertension Past Surgical History: No Surgical History Alcohol Use: Occasionally Drug Use: None Adult General Chief Complaint Chief Complaint: LOWER EXT PAIN [facility] HPI Patient is a 48-year-old female who presents with complaint of right lower leg pain and swelling that started yesterday at about 10 AM. Patient states that normally she is up on her feet working 16 hours a day and does not have problems with her legs. She denies any recent injuries. She states the pain has been worse with weightbearing since onset. She rates pain as being moderate. She states that she did take some Advil while she was at work and that had helped with the pain for a few hours but then it returned. She denies any chest pain, shortness of breath or cough. Review of Systems Review of Systems Constitutional: Denies fever or chills [] Respiratory: Denies cough or shortness of breath [] Cardiovascular: No additional information not addressed in HPI [] Musculoskeletal: Complains of right lower leg pain [] Integument: Denies rash or skin lesions [] All other systems were reviewed and found to be within normal limits, except as documented in this note. Allergies Allergies Allergies Coded Allergies Type Severity Reaction Last Updated Verified No Known Drug Allergies 09/06/16 No Physical Exam Physical Exam Constitutional: Well developed, well nourished, no acute distress, non-toxic appearance. [] HENT: Normocephalic, atraumatic, bilateral external ears normal, oropharynx moist, no oral exudates, nose normal. [] Eyes: PERRLA, EOMI, conjunctiva normal, no discharge. [] Neck: Normal range of motion, no tenderness, supple, no stridor. [] Cardiovascular: Regular rate and rhythm[] Lungs & Thorax: Bilateral breath sounds clear to auscultation [] Abdomen: Bowel sounds normal, soft. [] Skin: Warm, dry, no erythema, no rash. [] Extremities: Right lower leg does demonstrate some nonpitting edema and calf tenderness and tenderness to palpation at the achilles insertion on exam. Braun's test is negative. [] Neurologic: Alert and oriented X 3, no focal deficits noted. [] Current Patient Data Vital Signs Vital Signs Date Time Temp Pulse Resp B/P (MAP) Pulse Ox O2 Delivery O2 Flow Rate FiO2 12/04/18 01:31 97.8 72 18 165/94 (117) 98 Room Air 97.8 Lab Values Laboratory Tests Test 12/04/18 03:50 White Blood Count 9.2 x10^3/uL (4.0-11.0) Red Blood Count 4.20 x10^6/uL (3.50-5.40) Hemoglobin 13.5 g/dL (12.0-15.5) Hematocrit 40.3 % (36.0-47.0) Mean Corpuscular Volume 96 fL (79-100) Mean Corpuscular Hemoglobin 32 pg (25-35) Mean Corpuscular Hemoglobin Concent 33 g/dL (31-37) Red Cell Distribution Width 12.9 % (11.5-14.5) Platelet Count 353 x10^3/uL (140-400) Neutrophils (%) (Auto) 43 % (31-73) Lymphocytes (%) (Auto) 43 % (24-48) Monocytes (%) (Auto) 8 % (0-9) Eosinophils (%) (Auto) 5 % (0-3) H Basophils (%) (Auto) 1 % (0-3) Neutrophils # (Auto) 4.0 x10^3uL (1.8-7.7) Lymphocytes # (Auto) 3.9 x10^3/uL (1.0-4.8) Monocytes # (Auto) 0.7 x10^3/uL (0.0-1.1) Eosinophils # (Auto) 0.5 x10^3/uL (0.0-0.7) Basophils # (Auto) 0.1 x10^3/uL (0.0-0.2) D-Dimer (Dory) 0.29 ug/mlFEU (0.00-0.50) Sodium Level 140 mmol/L (136-145) Potassium Level 3.2 mmol/L (3.5-5.1) L Chloride Level 103 mmol/L (98-107) Carbon Dioxide Level 24 mmol/L (21-32) Anion Gap 13 (6-14) Blood Urea Nitrogen 17 mg/dL (7-20) Creatinine 0.6 mg/dL (0.6-1.0) Estimated GFR (Cockcroft-Gault) 107.2 BUN/Creatinine Ratio 28 (6-20) H Glucose Level 134 mg/dL (70-99) H Calcium Level 8.9 mg/dL (8.5-10.1) Total Bilirubin 0.1 mg/dL (0.2-1.0) L Aspartate Amino Transferase (AST) < 5 U/L (15-37) L Alanine Aminotransferase (ALT) 35 U/L (14-59) Alkaline Phosphatase 71 U/L (46-116) Total Protein 7.6 g/dL (6.4-8.2) Albumin 3.3 g/dL (3.4-5.0) L Albumin/Globulin Ratio 0.8 (1.0-1.7) L Laboratory Tests 12/04/18 03:50 Laboratory Tests 12/04/18 03:50 EKG EKG [] Radiology/Procedures Radiology/Procedures [] Course & Med Decision Making Course & Med Decision Making Pertinent Labs and Imaging studies reviewed. (See chart for details) [] Dragon Disclaimer Dragon Disclaimer This electronic medical record was generated, in whole or in part, using a voice recognition dictation system. Departure Departure Impression: Primary Impression: Achilles tendinitis of right lower extremity Disposition: 01 HOME, SELF-CARE Condition: STABLE Referrals: THOMAS FINLEY MD (PCP) Patient Instructions: Achilles Tendinitis Scripts Diclofenac Sodium (DICLOFENAC SODIUM) 75 Mg Tablet. 1 TAB PO BID PRN for PAIN, #20 TAB Prov: PATRICIA ENG Jr., DO 12/04/18 PATRICIA ENG Jr., DO Dec 04, 2018 03:30
[2018-12-04 04:01] LABS: BASO # 0.1 x10^3/uL (0.0-0.2); BASO % 1 % (0-3); EOS # 0.5 x10^3/uL (0.0-0.7); EOS % 5 % (0-3); HEMATOCRIT 40.3 % (36.0-47.0); HEMOGLOBIN 13.5 g/dL (12.0-15.5); LYMPH # 3.9 x10^3/uL (1.0-4.8); LYMPH % 43 % (24-48); MEAN CORPUSCULAR HEMOGLOBIN 32 pg (25-35); MEAN CORPUSCULAR HGB CONC 33 g/dL (31-37); MEAN CORPUSCULAR VOLUME 96 fL (79-100); MONO # 0.7 x10^3/uL (0.0-1.1); MONO % 8 % (0-9); NEUT % 43 % (31-73); PLATELET COUNT 353 x10^3/uL (140-400); RED CELL DISTRIBUTION WIDTH 12.9 % (11.5-14.5); WHITE BLOOD COUNT 9.2 x10^3/uL (4.0-11.0)
[2018-12-04 04:10] LABS: ANION GAP 13 (6-14); BLOOD UREA NITROGEN 17 mg/dL (7-20); BUN/CREATININE RATIO 28 (6-20); CALCIUM 8.9 mg/dL (8.5-10.1); CARBON DIOXIDE 24 mmol/L (21-32); CHLORIDE 103 mmol/L (98-107); CREATININE 0.6 mg/dL (0.6-1.0); GFR 107.2; GLUCOSE 134 mg/dL (70-99); POTASSIUM 3.2 mmol/L (3.5-5.1); SODIUM 140 mmol/L (136-145)
[2018-12-04 04:16] LABS: ALBUMIN 3.3 g/dL (3.4-5.0); ALBUMIN/GLOBULIN RATIO 0.8 (1.0-1.7); ALK PHOS 71 U/L (46-116); ALT (SGPT) 35 U/L (14-59); TOTAL BILIRUBIN 0.1 mg/dL (0.2-1.0); TOTAL PROTEIN 7.6 g/dL (6.4-8.2)
[2018-12-04 04:30] LABS: AST (SGOT) < 5 U/L (15-37)
[2018-12-04] MEDS ORDERED: DICL75TA PO (04:37)
[2018-12-04 04:45] VITALS: BP 146/71
--- NOTE | 2018-12-04 08:34 | RAD ---
Indication: Pain. TECHNIQUE: AP and lateral views of the right tibia and fibula COMPARISON: None Findings/ impression: No acute fracture or dislocation. Knee joint is within normal limits. Small plantar calcaneal spur is seen. Electronically signed by: Glen Luque DO (12/04/2018 8:31 AM) [facility]
== END 2018-12-04 04:45 | disposition home or self-care (01) ==
LOC: ER 22:02
DX: M76.61 Achilles tendinitis, right leg (principal); K21.9 Gastro-esophageal reflux disease without esophagitis; I10 Essential (primary) hypertension
CPT/HCPCS: 36415; 73590; 80053; 85025; 85379; 99284

== ENCOUNTER → 2019-08-20 | Outpatient (CLI) | payer OTHER ==
[~2019-08-20] MED LIST changes: +DICL75TA PO
--- NOTE | 2019-08-20 14:54 | RAD ---
EXAM: Right shoulder, 3 views. HISTORY: Rotator cuff tendinitis. COMPARISON: None. FINDINGS: 3 views of the right shoulder obtained. There is no fracture, dislocation or subluxation. IMPRESSION: No acute osseous finding. Electronically signed by: Angelica Franco MD (08/20/2019 2:51 PM) [place] [id number]
== END | disposition home or self-care (01) ==
LOC: RAD 14:14
PROVIDERS: ATTEND Family Medicine
DX: M75.81 Other shoulder lesions, right shoulder (principal)
CPT/HCPCS: 73030

== ENCOUNTER 2020-09-27 02:26 | Emergency (ER) | payer OTHER ==
[~2020-09-27] VITALS: Ht 165.1 cm; Wt 84.1 kg
[2020-09-27] MEDS ORDERED: PRED50TA PO (04:15)
[2020-09-27] MEDS ORDERED: AMOX1TAB61 PO (04:15)
[2020-09-27] MEDS ORDERED: TRAM50TA PO (04:15)
--- NOTE | 2020-09-27 04:15 | ED.ADGEN ---
Past Medical History Past Medical History: GERD, Hypertension Past Surgical History: No Surgical History Smoking Status: Current Every Day Smoker Alcohol Use: Occasionally Drug Use: None General Adult EDM: Chief Complaint: HAND PROBLEM HPI: HPI: Patient is a 50-year-old female who presents to the emergency room complaining of left thumb pain and right first finger pain. She works with her hands all day. She saw her primary care doctor for this who started her on naproxen. She has been taking this regularly without any relief. She states she has not been able to sleep at all due to the pain. 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 She has noticed some redness to her thumb with swelling. Review of Systems: Review of Systems: Complete ROS is negative unless otherwise documented in HPI Current Medications: Current Medications Medications (Trade) Dose Ordered Sig/Suzette Start Time Stop Time Status Last Admin Dose Admin Colchicine (Colcrys) 1.2 mg 1X ONCE 09/27/20 04:30 09/27/20 04:31 DC 09/27/20 04:30 1.2 MG Allergies: Allergies: Allergies Coded Allergies Type Severity Reaction Last Updated Verified No Known Drug Allergies 09/06/16 No Physical Exam: PE: General: Awake, alert, NAD. Well Nourished, well hydrated. Cooperative HEENT: Atraumatic, EOMI, PERRL, airway patent, moist oral mucosa Neck: Supple, trachea midline Respiratory: CTA bilaterally, normal effort, no wheezing/crackles CV: RRR, no murmur, cap refill <2 GI: Soft, nondistended, nontender, no masses MSK: L hand: thumb with erythema and swelling, no tendon tenderness, no fluctuance, FROM, normal sensation Skin: Warm, dry, intact Neuro: A&O x3, speech NL, sensory and motor grossly intact, no focal deficits Psych: Normal affect, normal mood, not suicidal or homicidal Current Patient Data: Vital Signs: Vital Signs Date Time Temp Pulse Resp B/P (MAP) Pulse Ox O2 Delivery O2 Flow Rate FiO2 09/27/20 04:35 80 20 153/78 (103) 98 09/27/20 02:30 98.6 Room Air 98.6 EKG: EKG: [] Heart Score: Risk Factors: Risk Factors: DM, Current or recent (<one month) smoker, HTN, HLP, family history of CAD, obesity. Risk Scores: Score 0 - 3: 2.5% MACE over next 6 weeks - Discharge Home Score 4 - 6: 20.3% MACE over next 6 weeks - Admit for Clinical Observation Score 7 - 10: 72.7% MACE over next 6 weeks - Early Invasive Strategies Radiology/Procedures: Radiology/Procedures: [] Course & Med Decision Making: Course & Med Decision Making Pertinent Labs and Imaging studies reviewed. (See chart for details) Patient is a 10-year-old female who presents to the emergency room complaining of severe pain in her thumb. She has tried multiple things at home. This could be related to a first-time episode of gout versus the beginning of cellulitis. Patient does not appear to have a surgical finger infection. She does not have any flexor tendon tenderness and has full range of motion. She was given a single dose of colchicine and will be placed on Augmentin. Patient's test results and vitals while in the ED were fully reviewed and discussed with the patient. Patient is stable and at this time does not need admission to the hospital. We have discussed strict return precautions and the importance of following up with their Primary Care Physician. Patient stated understanding and was given an opportunity to ask any questions. Patient is in agreement with plan. Dragon Disclaimer: Dragon Disclaimer: This electronic medical record was generated, in whole or in part, using a voice recognition dictation system. Departure Departure Impression: Primary Impression: Overuse injury Additional Impression: Cellulitis Disposition: 01 DC HOME SELF CARE/HOMELESS Condition: STABLE Referrals: THOMAS FINLEY MD (PCP) Patient Instructions: Finger Sprain, [id number] Scripts Amoxicillin/Potassium Clav (AUGMENTIN 875-125 TABLET) 1 Each Tablet 1 TAB PO Q12HR for 7 Days, #14 TAB Prov: DONITA FREEMAN MD 09/27/20 Prednisone (PREDNISONE) 50 Mg Tablet 1 TAB PO DAILY, #5 TAB Prov: DONITA FREEMAN MD 09/27/20 Tramadol Hcl (TRAMADOL HCL) 50 Mg Tablet 50 MG PO Q6HRS PRN for PAIN for 4 Days, #10 TAB Prov: DONITA FREEMAN MD 09/27/20 Problem Qualifiers DONITA FREEMAN MD Sep 27, 2020 04:15
[2020-09-27] MEDS ORDERED: COLCHICINE 0.6 MG TABLET PO ONE (04:30)
[2020-09-27 04:35] VITALS: BP 153/78
== END 2020-09-27 04:35 | disposition home or self-care (01) ==
LOC: ER 02:26
DX: M70.842 Other soft tissue disorders related to use, overuse and pressure, left hand (principal); L03.012 Cellulitis of left finger; M79.645 Pain in left finger(s); M79.644 Pain in right finger(s); K21.9 Gastro-esophageal reflux disease without esophagitis; I10 Essential (primary) hypertension; F17.200 Nicotine dependence, unspecified, uncomplicated; Y93.89 Activity, other specified
CPT/HCPCS: 99283

== ENCOUNTER → 2020-12-02 | Outpatient (CLI) | payer OTHER ==
[~2020-12-02] MED LIST changes: +AMOX1TAB61 PO; +PRED50TA PO; +TRAM50TA PO
--- NOTE | 2020-12-02 16:19 | RAD ---
EXAM: Right knee, 2 views. HISTORY: Pain. COMPARISON: None. FINDINGS: 2 views of the right knee are obtained. There is no fracture, dislocation or subluxation. T here is a small joint effusion. IMPRESSION: 1. No acute osseous finding. 2. Small joint effusion. Electronically signed by: Angelica Franco MD (12/02/2020 4:17 PM) [id number]
== END ==
LOC: RAD 11:08
PROVIDERS: ATTEND Family Medicine
DX: M25.461 Effusion, right knee (principal)
CPT/HCPCS: 73560

== ENCOUNTER → 2020-12-09 | Outpatient (CLI) | payer OTHER ==
--- NOTE | 2020-12-09 17:38 | RAD ---
PROCEDURE: XR HAND 3 VIEWS STUDY DATE: 12/09/2020 CLINICAL INDICATION / HISTORY: Reason: BILATERAL HAND PAIN. NO INJURY, PT UNABLE TO REMOVE RING / Spl . Instructions: / History: . TECHNIQUE: PA, lateral and oblique views of the right and left hands. 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 No fracture or dislocation is identified. The bone density is normal. The joint spaces are mainta ined, and there are no erosions to suggest an inflammatory arthropathy. The soft tissues are unremark able. IMPRESSION: No acute osseous abnormality. Likely incidental chronic amputation of the left fifth fing er at the PIP joint. Electronically signed by: Zander Humphreys MD (12/09/2020 5:35 PM) [id number]
== END ==
LOC: RAD 14:57
PROVIDERS: ATTEND Family Medicine
DX: M79.642 Pain in left hand (principal); M79.641 Pain in right hand
CPT/HCPCS: 73130-50

== ENCOUNTER 2020-12-30 01:40 | Emergency (ER) | payer OTHER ==
[~2020-12-30] VITALS: Ht 165.1 cm; Wt 90.9 kg
--- NOTE | 2020-12-30 02:47 | RAD ---
Right Lower Extremity Venous Doppler Ultrasound History: Reason: pain, swelling, eval for DVT / Spl. Instructions: / History: Comparison: None Procedure: Color flow, duplex, spectral analysis and 2D images are obtained with and without compress ion in the area of the common femoral vein, superficial femoral vein - femoral vein junction, main fe moral vein (superficial femoral vein) and popliteal vein. Veins of the proximal calf are also imaged. Findings: There is normal duplex flow, color flow and compressibility of all visualized vein segments. No evide nce of deep venous thrombus is present. Impression: No evidence of DVT. Electronically signed by: Miguel A Rose III, MD (12/30/2020 2:44 AM) [facility]
[2020-12-30 03:00] VITALS: BP 133/61
--- NOTE | 2020-12-30 03:28 | PHYS DOC ---
Past Medical History Past Medical History: GERD, Hypertension Past Surgical History: No Surgical History Smoking Status: Current Every Day Smoker Alcohol Use: Occasionally Drug Use: None General Adult EDM: Chief Complaint: LOWER EXT PAIN HPI: HPI: Patient is a 50 year old female who presents with a chief complaint of right leg pain. Patient states that she has been experiencing full right leg pain and swelling for the past 2 months. She states that it is gotten worse the past few days and is becoming difficult to talk and the pain is keeping her up at night. She denies injury or trauma to the lower extremity, denies back pain, denies recent travel, denies history of blood clots. Patient reports that she works 16 hours a day on her feet. Patient denies shortness of breath, chest pain, nausea, vomiting, diarrhea, or recent fevers. She denies having any medical history other than gout in her right thumb. She states that her primary care provider injected her right knee. She describes the pain as a "shocklike" sensation. Review of Systems: Review of Systems: Constitutional: Denies fever or chills Eyes: Denies redness or eye pain HENT: Denies nasal congestion or sore throat Respiratory: Denies cough or shortness of breath Cardiovascular: Denies chest pain or palpitations GI: Denies abdominal pain, nausea, or vomiting : Denies dysuria or hematuria Musculoskeletal: Denies back pain or joint pain; reports right leg pain. Integument: Denies rash or skin lesions Neurologic: Denies headache, focal weakness or sensory changes Complete systems were reviewed and found to be within normal limits, except as documented in this note. Heart Score: C/O Chest Pain: N/A Allergies: Allergies: Allergies Coded Allergies Type Severity Reaction Last Updated Verified No Known Drug Allergies 09/06/16 No Physical Exam: PE: Constitutional: Well developed, well nourished, no acute distress, non-toxic appearance HENT: Normocephalic, atraumatic Eyes: Conjunctiva normal, no discharge Neck: Normal range of motion, supple Lungs & Thorax: No respiratory distress, equal chest rise and fall Abdomen: Soft, no tenderness Skin: Warm, dry, no erythema, no rash Back: No tenderness, no CVA tenderness Extremities: Tenderness to palpation diffusely of the right upper and lower extremity soft tissue. Some tenderness palpation anterior knee joint, no bony deformities noted. Right extremity mildly swollen compared to the left, nonpitting. Neurologic: Alert and oriented X 3, normal motor function, normal sensory function, no focal deficits noted Psychologic: Affect normal, judgment normal Current Patient Data: Vital Signs: Vital Signs Date Time Temp Pulse Resp B/P (MAP) Pulse Ox O2 Delivery O2 Flow Rate FiO2 12/30/20 01:45 98.7 80 18 144/83 (103) 98 Room Air 98.7 EKG: EKG: [] Radiology/Procedures: Impression: PROCEDURE: VENOUS LOWER EXTREMITY RIGHT Right Lower Extremity Venous Doppler Ultrasound History: Reason: pain, swelling, eval for DVT / Spl. Instructions: / History: Comparison: None Procedure: Color flow, duplex, spectral analysis and 2D images are obtained with and without compression in the area of the common femoral vein, superficial femoral vein - femoral vein junction, main femoral vein (superficial femoral vein) and popliteal vein. Veins of the proximal calf are also imaged. Findings: There is normal duplex flow, color flow and compressibility of all visualized vein segments. No evidence of deep venous thrombus is present. Impression: No evidence of DVT. Electronically signed by: Lisa Rose III, MD (12/30/2020 2:44 AM) [facility] Course & Med Decision Making: Course & Med Decision Making Pertinent Imaging studies reviewed. (See chart for details) Is a 50-year-old female presents the ED with right leg pain and swelling. Appears to be a chronic issue has been going on for the past few months with worsening pain over the past couple days. DVT study was negative. Likely musculoskeletal in origin related to her long 16-hour work days on her feet. hx of knee issues. Question swelling due to arthritis of knee in addition to poor vascular compliance. Patient stable for discharge home with outpatient follow-up with PCP/Orthopedics. Orthopedic referral provided. Discussed findings and plan with patient, who acknowledges understanding and agreement. Ronald Disclaimer: Ronald Disclaimer: This electronic medical record was generated, in whole or in part, using a voice recognition dictation system. Splinting Splinting : Location: Right leg Pre-Made Type: RUPALI bandage Pre-Proc Neuro Vasc Exam: normal Post-Proc Neuro Vasc Exam: normal, unchanged from pre-exam Departure Departure Impression: Primary Impression: Peripheral edema Additional Impression: Chronic knee pain Qualified Codes: M25.561 - Pain in right knee; G89.29 - Other chronic pain Disposition: 01 HOME / SELF CARE / HOMELESS Condition: STABLE Referrals: THOMAS FINLEY MD (PCP) LISA OCHOA MD Patient Instructions: Arthritis, Nonspecific, [id number], Compression Stockings, Knee Pain, [id number], Peripheral Edema Scripts Naproxen (NAPROXEN) 375 Mg Tablet 375 MG PO TID PRN PRN for PAIN, #20 TAB Prov: FLACO AVILES DO 12/30/20 Tramadol Hcl (TRAMADOL HCL) 50 Mg Tablet 50 MG PO Q6HRS PRN for PAIN, #14 TAB Prov: FLACO AVILES DO 12/30/20 FLACO AVILES DO Dec 30, 2020 03:28
[2020-12-30] MEDS ORDERED: TRAM50TA PO (03:41)
[2020-12-30] MEDS ORDERED: NAPR-695 PO (03:41)
== END 2020-12-30 04:00 | disposition home or self-care (01) ==
LOC: ER 01:40
DX: R60.0 Localized edema (principal); M25.561 Pain in right knee; G89.29 Other chronic pain; I10 Essential (primary) hypertension; K21.9 Gastro-esophageal reflux disease without esophagitis; F17.200 Nicotine dependence, unspecified, uncomplicated
CPT/HCPCS: 93971; 99284-25

== ENCOUNTER 2021-03-06 23:36 | Emergency (ER) | payer OTHER ==
[~2021-03-06] VITALS: Ht 165.1 cm; Wt 98.2 kg
[~2021-03-06 23:36] MED LIST changes: +NAPR-695 PO
--- NOTE | 2021-03-07 00:07 | PHYS DOC ---
Past Medical History Past Medical History: GERD, Hypertension Past Surgical History: No Surgical History Smoking Status: Current Every Day Smoker Alcohol Use: Occasionally Drug Use: None General Adult EDM: Chief Complaint: LOWER EXT PAIN HPI: HPI: Patient is a 50 year old female presents with the chief complaint right knee pain. Pain ongoing right knee for the last 5 months. Pain worse over the last several days. Patient has seen by ortho-- received shot injection in knee. Patient has been taking naprosyn with no relief. Patient has had associated leg swelling. Previous ER workup negative for DVT Review of Systems: Review of Systems: Constitutional: Denies fever or chills. [] Eyes: Denies change in visual acuity. [] HENT: Denies nasal congestion or sore throat. [] Respiratory: Denies cough or shortness of breath. [] Cardiovascular: Denies chest pain or edema. [] GI: Denies abdominal pain, nausea, vomiting, bloody stools or diarrhea. [] : Denies dysuria. [] Musculoskeletal: Denies back pain positive joint pain. [] Integument: Denies rash. [] Neurologic: Denies headache, focal weakness or sensory changes. [] Endocrine: Denies polyuria or polydipsia. [] Lymphatic: Denies swollen glands. [] Psychiatric: Denies depression or anxiety. [] Heart Score: C/O Chest Pain: N/A Risk Factors: Risk Factors: DM, Current or recent (<one month) smoker, HTN, HLP, family history of CAD, obesity. Risk Scores: Score 0 - 3: 2.5% MACE over next 6 weeks - Discharge Home Score 4 - 6: 20.3% MACE over next 6 weeks - Admit for Clinical Observation Score 7 - 10: 72.7% MACE over next 6 weeks - Early Invasive Strategies Allergies: Allergies: Allergies Coded Allergies Type Severity Reaction Last Updated Verified No Known Drug Allergies 09/06/16 No Physical Exam: PE: Constitutional: Well developed, well nourished, no acute distress, non-toxic appearance. [] HENT: Normocephalic, atraumatic, bilateral external ears normal, oropharynx moist, no oral exudates, nose normal. [] Eyes: PERRLA, EOMI, conjunctiva normal, no discharge. [] Neck: Normal range of motion, no tenderness, supple, no stridor. [] Cardiovascular:Heart rate regular rhythm, no murmur [] Lungs & Thorax: Bilateral breath sounds clear to auscultation [] Abdomen: Bowel sounds normal, soft, no tenderness, no masses, no pulsatile masses. [] Skin: Warm, dry, no erythema, no rash. [] Back: No tenderness, no CVA tenderness. [] Extremities:no deformities right knee, no effusion, full range of motion right knee. ambulated into ER. Neurologic: Alert and oriented X 3, normal motor function, normal sensory function, no focal deficits noted. [] Psychologic: Affect normal, judgement normal, mood normal. [] Current Patient Data: Vital Signs: Vital Signs Date Time Temp Pulse Resp B/P (MAP) Pulse Ox O2 Delivery O2 Flow Rate FiO2 03/06/21 23:41 98.0 90 151/90 (110) 97 Room Air 98.0 EKG: EKG: [] Radiology/Procedures: Radiology/Procedures: [] Course & Med Decision Making: Course & Med Decision Making Pertinent Labs and Imaging studies reviewed. (See chart for details) [] Dragon Disclaimer: Dragon Disclaimer: This electronic medical record was generated, in whole or in part, using a voice recognition dictation system. Departure Departure Impression: Primary Impression: Chronic knee pain Disposition: HOME / SELF CARE / HOMELESS Condition: STABLE Referrals: THOMAS FINLEY MD (PCP) Patient Instructions: Knee Pain Scripts Tramadol Hcl (ULTRAM) 50 Mg Tablet 1 TAB PO PRN Q6HRS PRN for pain MDD 4 Tablet(s) for 7 Days, #28 TAB 0 Refills Prov: ABHAY PEREZ DO 03/07/21 ABHAY PEREZ DO Mar 07, 2021 00:07
[2021-03-07] MEDS ORDERED: TRAM-48 PO (00:27)
[2021-03-07 00:30] VITALS: BP 150/97
[2021-03-07] MEDS ORDERED: KETOROLAC 60 MG/2 ML VIAL. IM ONE (00:30)
== END 2021-03-07 00:50 | disposition home or self-care (01) ==
LOC: ER 23:36
DX: G89.29 Other chronic pain (principal); M25.561 Pain in right knee; R22.41 Localized swelling, mass and lump, right lower limb; K21.9 Gastro-esophageal reflux disease without esophagitis; I10 Essential (primary) hypertension; F17.200 Nicotine dependence, unspecified, uncomplicated
CPT/HCPCS: 96372; 99283; J1885

== ENCOUNTER → 2021-04-21 | Outpatient (CLI) | payer OTHER ==
[~2021-04-21] MED LIST changes: +TRAM-48 PO
--- NOTE | 2021-04-21 16:04 | KCIC ---
EXAM: Lumbar spine MRI without contrast. HISTORY: Pain. TECHNIQUE: Multiplanar, multisequence magnetic resonance imaging of the lumbar spine was performed wi thout contrast. COMPARISON: None. FINDINGS: There is mild lumbar hyperlordosis and scoliosis. There is 3 mm grade 1 anterolisthesis of L4 on L5 and L5 and S1. There is disc desiccation at L4-L5, and to a lesser extent, L3-L4. There is n o fracture or suspicious osseous lesion. There are few tiny osseous hemangiomas. The conus terminates at L2. At L1-L2 and L2-L3, there is no stenosis. At L3-L4, there is a mild disc bulge and endplate remodeling. There is mild bilateral facet arthropat hy. There is mild bilateral foraminal stenosis. At L4-L5, there is a shallow left lateral recess to foraminal disc protrusion and annular tear and ri ght foraminal to extra foraminal disc protrusion. These are superimposed on a disc bulge and endplate remodeling. There is mild left greater than right facet arthropathy. There is grade 1 anterolisthesi s. There is mild bilateral foraminal stenosis with abutment of the exiting L4 nerve roots. There is m ild to moderate central canal stenosis. At L5-S1, there is a left foraminal to extra foraminal osteophyte superimposed on endplate remodeling . There is mild right and moderate left facet arthropathy. There is grade 1 anterolisthesis. There is mild left foraminal stenosis with abutment the exiting left L5 nerve root. There is also narrowing o f the left lateral recess. IMPRESSION: Degenerative change involving the lumbar spine, described in detail above. This is associ ated with mild lateral foraminal stenosis at L3-L4, mild lateral foraminal and mild to moderate centr al canal stenosis at L4-5, and mild left foraminal and left lateral recess stenosis at L5-S1. Electronically signed by: Angelica Franco MD (04/21/2021 4:00 PM) [id number]
--- NOTE | 2021-04-21 18:02 | KCIC ---
EXAMINATION: MRI RIGHT LOWER EXTREMITY JOINT WITHOUT INDICATIONS: Right knee and leg pain for 6 months. TECHNIQUE: Multiplanar multisequence MRI of the right knee was obtained without contrast. COMPARISON: Right knee radiograph 03/08/2021 FINDINGS: MENISCI: There is a complete radial tear at the posterior root horn junction of the medial meniscus. Mild meniscal extrusion of the body medial meniscus. The lateral meniscus is intact. LIGAMENTS: The anterior and posterior cruciate ligaments are intact. The medial collateral ligament and lateral collateral ligament complex are intact. EXTENSOR MECHANISM: The quadriceps and patellar tendons are intact. Fat pads are normal. Retinacula are intact. BONES AND CARTILAGE: There is partial thickness cartilage loss in the weightbearing medial compartme nt. There is focal mild depression of the subchondral bone plate of the peripheral medial tibial plat eau with surrounding marrow edema (image 12, series 9). Lateral compartment and patellofemoral compar tment cartilage is intact. OTHER: Small joint effusion. Remaining muscles and tendons are intact. Trace [place] cyst. IMPRESSION: 1. Complete radial tear at the posterior root horn junction medial meniscus with mild extrusion. 2. Marrow edema in the medial tibial plateau with mild focal depression of the subchondral bone plate , which could represent a small subchondral fracture with articular collapse or could be degenerative . 3. Deep partial-thickness cartilage loss in the weightbearing medial compartment. Electronically signed by: Cande Elizondo MD (04/21/2021 5:59 PM) [id number]
== END ==
LOC: KCIC MRI 13:07
PROVIDERS: ATTEND Physician Assistant
DX: S83.241A Other tear of medial meniscus, current injury, right knee, initial encounter (principal); M47.27 Other spondylosis with radiculopathy, lumbosacral region; M48.07 Spinal stenosis, lumbosacral region; M43.17 Spondylolisthesis, lumbosacral region; M41.86 Other forms of scoliosis, lumbar region; M25.461 Effusion, right knee; D18.09 Hemangioma of other sites; M25.78 Osteophyte, vertebrae; X58.XXXA Exposure to other specified factors, initial encounter; Y93.89 Activity, other specified; Y92.89 Other specified places as the place of occurrence of the external cause; Y99.8 Other external cause status
CPT/HCPCS: 72148; 73721

== ENCOUNTER 2021-04-30 01:39 | Emergency (ER) | payer OTHER ==
[~2021-04-30] VITALS: Ht 165.1 cm; Wt 90.9 kg
[2021-04-30 02:48] VITALS: BP 154/89
== END 2021-04-30 03:09 | disposition left against medical advice (07) ==
LOC: ER 01:39
DX: M79.602 Pain in left arm (principal); Z53.21 Procedure and treatment not carried out due to patient leaving prior to being seen by health care provider

== ENCOUNTER → 2021-11-24 | Outpatient (CLI) | payer OTHER ==
--- NOTE | 2021-11-25 10:44 | RAD ---
Bilateral digital screening 2-D and 3-D (digital breast tomosynthesis) mammogram: Reason for examination: Routine screening. Comparison: Mammogram from 10/23/2018. Interpretation was made with the benefit of CAD. FINDINGS: Breast density: Category B. There are scattered areas of fibroglandular density. No suspicious breast mass, malignant appearing calcifications, or architectural distortion is seen. IMPRESSION: No evidence of malignancy. Assessment: BI-RADS 1. Negative. Recommendation: Routine screening mammograms. The patient will receive a letter with the results in the mail. Patient information will be entered i nto the mammography reminder system with a target recall date for the next mammogram. A reminder shailesh er will be generated. Electronically signed by: Dhara Barreto MD (11/25/2021 10:41 AM) [id number]
== END ==
LOC: MAMMO 12:09
PROVIDERS: ATTEND Internal Medicine
DX: Z12.31 Encounter for screening mammogram for malignant neoplasm of breast (principal)
CPT/HCPCS: 77063; 77067